=== PATIENT | female | born 1950 | race Caucasian/White ===

== ENCOUNTER → 2018-02-19 | Outpatient (CLI) | payer OTHER, MEDICARE ==
[~2018-02-19] MED LIST: ACIPHEX 20 MG T20 M1 PO; ACIPHEX 20 MG T20 MG PO; CALCIUM + D3 E1 EACH PO; DETROL LA2 MG PO; HAIR SKIN NAIL1 EACH PO; IBUPROFEN 200200 M1 PO; LEXAPRO20 MG PO; MAGOX 400400 MG PO; REQUIP XL2 MG PO; REQUIP4 MG PO; TOPAMAX 25 MG T25 M1 PO; TOPAMAX50 MG PO; UNICOMPLEX M TA1 TA1 PO; ZETIA10 MG PO
== END ==
LOC: RAD 08:57
DX: K44.9 Diaphragmatic hernia without obstruction or gangrene (principal); R13.10 Dysphagia, unspecified